=== PATIENT | female | born 2000 | race Caucasian/White ===

== ENCOUNTER → 2020-08-01 | Outpatient (CLI) | payer BC, SELFPAY ==
[2020-08-01 08:32] VITALS: BMI 22.1
[2020-08-05 17:03] LABS: HPV Reflexed? NOT INDICATED
== END | disposition home or self-care (01) ==
LOC: LABSPEC 13:46
PROVIDERS: PCP Pediatrics; Referring Provider Obstetrics & Gynecology; Visit Provider Obstetrics & Gynecology
DX: Z12.4 Encounter for screening for malignant neoplasm of cervix (principal)
CPT/HCPCS: 88175; G0145

== ENCOUNTER 2020-10-10 11:56 | Outpatient (RCR) | payer BC, SELFPAY ==
[2020-08-01 08:32] VITALS: BMI 22.1
== END 2020-12-03 23:59 ==
LOC: IMMUN 11:56
PROVIDERS: Referring Provider Family Medicine; Visit Provider Family Medicine
DX: Z23 Encounter for immunization (principal)
CPT/HCPCS: 0001A; 0002A; 91300

== ENCOUNTER → 2023-04-21 | Outpatient (CLI) | payer BC, SELFPAY ==
[2023-04-25 08:07] LABS: Chlamydia By Nucleic Acid AMP Negative (Negative); Gonococcus By Nucleic Acid AMP Negative (Negative)
== END | disposition home or self-care (01) ==
LOC: LABSPEC 15:03
PROVIDERS: Referring Provider Registered Nurse; Visit Provider Registered Nurse
DX: Z34.90 Encounter for supervision of normal pregnancy, unspecified, unspecified trimester (principal); Z3A.00 Weeks of gestation of pregnancy not specified
CPT/HCPCS: 87086; 87491; 87591

== ENCOUNTER → 2023-05-19 | Outpatient (CLI) | payer BC, SELFPAY ==
[2023-05-19 14:21] LABS: Absolute Lymphocyte Count 1.59 X10^3/uL (0.83-4.51); Absolute Neutrophil Count 7.2 X10^3/uL (2.0-7.7); Basophil# 0.03 X10^3/uL; Basophil% 0.3 % (0-1); Eosinophil# 0.17 X10^3/uL; Eosinophils% 1.8 % (0-5); Hemoglobin 12.1 g/dL (12.0-15.0); Lymphocyte # 1.59 X10^3/ul (0.83-4.51); Lymphocyte % 16.6 % (19-41); Mean Corp Hgb Conc 33.6 g/dL (32-36); Mean Corpuscular Hgb 30.3 pg (27.0-32.0); Mean Corpuscular Volume 90.2 fL (81-99); Mean Platelet Vol. 10.2 fl (6.2-12.0); Monocyte# 0.56 X10^3/uL; Monocyte% 5.9 % (0-10); NRBC Flagged by Analyzer 0 % (0-5); Neutrophil # 7.19 X10^3/uL (2.7-7.7); Neutrophil % 75.1 % (47-70); Platelet Count 220 K/mm3 (150-450); RBC Distribution Width SD 38.9 fl (35.1-43.9); Red Blood Count 3.99 M/mm3 (4.2-5.4); White Blood Count 9.6 K/mm3 (4.4-11.0)
[2023-05-19 14:59] LABS: Anion Gap 4 (5-15); BUN 9 mg/dL (7-18); BUN/Creat Ratio 11.7 RATIO (10-20); Calcium,Total 8.7 mg/dL (8.5-10.1); Chloride 107 mmol/L (98-107); Creatinine, Serum 0.77 mg/dL (0.55-1.02); EST Glomerular Filtration Rate 98 mL/min (>60); Est Glom Filt Rate - Afr Amer 119 mL/min (>60); Glucose 54 mg/dL (74-106); Potassium 3.5 mmol/L (3.5-5.1); Sodium Level 137 mmol/L (136-145)
[2023-05-19 15:39] LABS: HIV - WCH Non-Reactive (Nonreactive); Hepatitis B Surface Antigen Non-Reactive (Nonreactive); Hepatitis C Antibody Non-Reactive (Nonreactive); Rubella IgG Non-Reactive (Nonreactive); Syphilis Antibodies Non-reactive
== END | disposition home or self-care (01) ==
PROVIDERS: Referring Provider Registered Nurse; Visit Provider Registered Nurse
DX: O99.280 Endocrine, nutritional and metabolic diseases complicating pregnancy, unspecified trimester (principal); E16.2 Hypoglycemia, unspecified; Z3A.00 Weeks of gestation of pregnancy not specified
CPT/HCPCS: 36415; 80048; 85025; 86703; 86762; 86780; 86803; 86850; 86900; 86901; 87340

== ENCOUNTER → 2023-06-30 | Outpatient (CLI) | payer BC, SELFPAY ==
--- NOTE | 2023-06-30 07:49 | US_ITS ---
STUDY: SECOND AND THIRD TRIMESTER OBSTETRICAL ULTRASOUND REASON FOR EXAM: Female, 22 years old anatomy LMP: 02/11/2023 TECHNIQUE: Transabdominal and Transvaginal TECHNICAL QUALITY: Adequate. PRIOR ULTRASOUND: None. FINDINGS: There is a single intrauterine fetus. The fetus is in a breech presentation. There is demonstrated cardiac activity with a heart rate of 147 bpm. There is a normal amniotic fluid volume. The largest amniotic fluid pocket measures 4.2 cm. The placenta is posterior and low lying but not previa in location. There are Grade 2 placental changes. The cervix measures 5.3 cm in length. The adnexal regions are not visualized. BIOMETRY: BPD: 4.3: 19 weeks, 0 days HC: 16.6: 19 weeks, 2 days AC: 14.8: 20 weeks, 1 days FL: 3.0: 19 weeks, 2 days CI: FL/BPD: FL/HC: FL/AC: HC/AC: age by current US: 19 weeks, 3 days. LISA by current US: 11/21/2023. Estimated weight: 305 grams, +/- 46 grams, 34 %. age by prior US: weeks, days. LISA by prior US: . Age by LMP: 19 weeks, 6 days. LISA by LMP: 11/18/2023. ANATOMY: Gender: Female Cranium: Normal lateral ventricles. Normal choroid plexus. Normal cerebellum. Normal cisterna magna. Normal face, nose and lips. Chest: Normal 4-chamber heart. Abdomen/Pelvis: Normal diaphragm. Normal stomach. Normal abdominal wall. Normal cord insertion. Normal 3 vessel cord. Normal kidneys. Normal bladder. Spine: Normal cervical spine. Normal thoracic spine. Normal lumbar spine. Normal sacrum. Extremities: Normal bilateral upper extremities. Normal bilateral lower extremities. US/OB Anatomy w/ Transvaginal IMPRESSION: Single live fetus in a breech presentation. No demonstrated anatomic abnormality. Placenta is grade 2 and is not low-lying with no previa. Cervix is closed. age by current US: 19 weeks, 3 days. LISA by current US: 11/21/2023. Estimated weight: 305 grams, +/- 46 grams, 34 %. Electronically Signed: Dario Wilcox MD at 19:56 EST ,
== END | disposition home or self-care (01) ==
PROVIDERS: Referring Provider Registered Nurse; Visit Provider Registered Nurse
DX: Z34.91 Encounter for supervision of normal pregnancy, unspecified, first trimester (principal); Z3A.13 13 weeks gestation of pregnancy
CPT/HCPCS: 76805; 76817

== ENCOUNTER → 2023-08-23 | Outpatient (CLI) | payer BC, SELFPAY ==
--- NOTE | 2023-08-23 07:28 | US_ITS ---
STUDY: SECOND AND THIRD TRIMESTER OBSTETRICAL ULTRASOUND - LIMITED REASON FOR EXAM: Female, 22 years old low lying placenta LMP: February 11, 2023. PRIOR ULTRASOUND: Comparison is made with prior study dated June 30, 2023. TECHNIQUE: Transabdominal and Transvaginal TECHNICAL QUALITY: Adequate. FINDINGS: There is a single intrauterine fetus. The fetus is in a cephalic presentation. There is demonstrated cardiac activity with a heart rate of 150 bpm. There is a normal amniotic fluid volume. The largest amniotic fluid pocket measures 5 cm x 4.9 cm. The amniotic fluid index ([place]) is within normal limits. The placenta is posterior in location and is not low lying. The tip of the placenta lies at 6.1 cm from the cervical os. There are Grade 0 placental changes. The cervix measures 4.3 cm in length. BIOMETRY: BPD: 6.86 cm: 27 weeks, 4 days HC: 25.54 cm: 27 weeks, 5 days AC: 22.78 cm: 27 weeks, 1 days FL: 5.17 cm: 27 weeks, 4 days Age by LMP: 27 weeks, 4 days. LISA by LMP: November 18, 2023. age by prior US: 27 weeks, 1 days. LISA by prior US: November 21, 2023. age by current US: 27 weeks, 4 days. LISA by current US: November 18, 2023. Estimated weight: 1076 grams, +/- 161 grams, 33 percentile. US/OB Limited With Biometrics IMPRESSION: Single live intrauterine gestation with mean gestational age of 27 weeks and 4 days. The tip of the placenta lies at 6.1 cm from the cervical os. Electronically Signed: Arslan Trevino MD at 9:55 EST ,
== END | disposition home or self-care (01) ==
LOC: US 07:25
PROVIDERS: Referring Provider Advanced Practice Midwife; Visit Provider Advanced Practice Midwife
DX: O44.40 Low lying placenta NOS or without hemorrhage, unspecified trimester (principal); Z3A.00 Weeks of gestation of pregnancy not specified
CPT/HCPCS: 76816

== ENCOUNTER → 2023-08-27 | Outpatient (CLI) | payer BC, SELFPAY ==
[2023-08-27 15:18] LABS: Absolute Lymphocyte Count 1.62 X10^3/uL (0.83-4.51); Absolute Neutrophil Count 8.7 X10^3/uL (2.0-7.7); Basophil# 0.02 X10^3/uL; Basophil% 0.2 % (0-1); Eosinophil# 0.24 X10^3/uL; Eosinophils% 2.1 % (0-5); Hematocrit 36.4 % (37-47); Hemoglobin 12.4 g/dL (12.0-15.0); Lymphocyte # 1.62 X10^3/ul (0.83-4.51); Mean Corp Hgb Conc 34.1 g/dL (32-36); Mean Corpuscular Hgb 30.9 pg (27.0-32.0); Mean Corpuscular Volume 90.8 fL (81-99); Mean Platelet Vol. 10.6 fl (6.2-12.0); Monocyte# 0.93 X10^3/uL; NRBC Flagged by Analyzer 0 % (0-5); Neutrophil # 8.74 X10^3/uL (2.7-7.7); Neutrophil % 75.2 % (47-70); Platelet Count 245 K/mm3 (150-450); RBC Distribution Width CV 12.2 % (11.6-14.6); RBC Distribution Width SD 40.4 fl (35.1-43.9); Red Blood Count 4.01 M/mm3 (4.2-5.4); White Blood Count 11.6 K/mm3 (4.4-11.0)
[2023-08-27 16:16] LABS: Glucose Challenge Gest 1H 50g 73 mg/dL (70-140)
[2023-08-27 16:31] LABS: HIV - WCH Non-Reactive (Nonreactive); Syphilis Antibodies Non-reactive
== END | disposition home or self-care (01) ==
LOC: LAB 14:42
PROVIDERS: Referring Provider Advanced Practice Midwife; Visit Provider Advanced Practice Midwife
DX: O44.40 Low lying placenta NOS or without hemorrhage, unspecified trimester (principal); Z3A.00 Weeks of gestation of pregnancy not specified; Z13.1 Encounter for screening for diabetes mellitus
CPT/HCPCS: 36415; 82950; 85025; 86703; 86780

== ENCOUNTER → 2023-10-21 | Outpatient (CLI) | payer BC, SELFPAY | END | disposition home or self-care (01) | PROVIDERS: Visit Provider Advanced Practice Midwife | DX: Z34.00 Encounter for supervision of normal first pregnancy, unspecified trimester (principal); Z3A.00 Weeks of gestation of pregnancy not specified | CPT/HCPCS: 87081 ==

== ENCOUNTER 2023-11-11 10:45 | Inpatient (IN) | payer BC, SELFPAY ==
[2023-11-11] VITALS (39 sets, daily range): BP systolic 95–119; BP diastolic 54–75; PULSE 69–89; RESP 14–18; TEMP 35.9–37.2; O2SAT 93–100; BMI 26.8
[2023-11-11] MEDS: Lactated Ringers 1,000 ML 50 ML IV (11:15)
[2023-11-11 11:33] LABS: Absolute Lymphocyte Count 1.61 X10^3/uL (0.83-4.51); Absolute Neutrophil Count 7.1 X10^3/uL (2.0-7.7); Basophil# 0.02 X10^3/uL; Basophil% 0.2 % (0-1); Eosinophil# 0.12 X10^3/uL; Eosinophils% 1.3 % (0-5); Hematocrit 35.1 % (37-47); Hemoglobin 11.8 g/dL (12.0-15.0); Lymphocyte # 1.61 X10^3/ul (0.83-4.51); Lymphocyte % 16.8 % (19-41); Mean Corp Hgb Conc 33.6 g/dL (32-36); Mean Corpuscular Hgb 29.4 pg (27.0-32.0); Mean Corpuscular Volume 87.3 fL (81-99); Mean Platelet Vol. 11.2 fl (6.2-12.0); Monocyte# 0.69 X10^3/uL; Monocyte% 7.2 % (0-10); NRBC Flagged by Analyzer 0 % (0-5); Neutrophil # 7.11 X10^3/uL (2.7-7.7); Platelet Count 235 K/mm3 (150-450); RBC Distribution Width SD 38.5 fl (35.1-43.9); Red Blood Count 4.02 M/mm3 (4.2-5.4); White Blood Count 9.6 K/mm3 (4.4-11.0)
[2023-11-11] MEDS: Oxytocin 15 Units/NS 250ml 15 UNITS/250 ML IV.SOLN 2 UNITS IV (11:47)
[2023-11-11] MEDS: 0.9% Normal Saline Single 100 ML IV.SOLN. INTRA-UTER (12:54)
[2023-11-11 18:25] LABS: Syphilis Antibodies Non-reactive
[2023-11-11] MEDS: fentaNYL-bupivacaine (epidural) 100 ML BAG EPIDURAL (18:44)
[2023-11-11] MEDS: Lactated Ringers 1,000 ML 999 ML IV (19:22)
[2023-11-11] MEDS: LACTATED RINGERS 500 ML 999 ML IV (20:40)
--- NOTE | 2023-11-11 20:46 | HP.PCM_ITS ---
History and Physical [facility] [address] [place] [address] OFFICE VISIT Date of Service: 11/11/23 Intake Vital Signs 07/30/2408:18 10/28/2410:00 11/10/2408:41 11/10/2408:43 Height 5 ft 6 in 5 ft 6 in 5 ft 6 in 5 ft 6 in Weight: 171 lb BMI 27.6 BP 117/68 Intake Visit Reasons: 39 WK OB [place] Required: No Is patient in pain?: No Allergies penicillin G Allergy (Mild, Verified 11/11/23 09:42) Unknown Medications ?Medication ?Instructions ?Recorded ?Confirmed ?Type vit,calcium no.40-iron tab PO 04/21/23 11/11/23 History fum 27 mg iron-folate no.1 1 mg tablet (PNV-Select) blood sugar diagnostic (Blood #120 ea 05/27/23 11/11/23 Rx Glucose Test strips) blood-glucose meter #1 ea 05/27/23 11/11/23 Rx lancets #100 ea 05/27/23 11/11/23 Rx ondansetron 4 mg disintegrating 4 mg PO Q6H PRN nausea and 07/30/23 11/11/23 Rx tablet vomiting #90 tabs Last Menstrual Period: 02/11/23 Zika: Zika virus screening: Negative : No PFSH PFSH Surgical History History of oral surgery Family History Father Low blood sugarAunt DiabetesGrandmother DiabetesBrother Seizures epilepsy Social History adopted: No household members: spouse housing: house current occupational status: employed current occupation: [employer] current occupational exposures/hazards: No pets and animals: Yes pets and animals: dog(s) history of recent travel: Yes out of state: Yes out of country: No sexually active: Yes Smoking Status: Never smoker alcohol intake: current alcohol intake frequency: a few times a week details: socially - not while substance use type: does not use caffeine: Yes what type of physical activity do you participate in: walking riley/christian: Uatsdin seatbelt use: always do you feel safe at home: Yes 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 she denies any vb lof admits good fm. upon evaluation she was found to have low fluid with an [place] of 5 cm. OB Visit LISA Calculator Estimated Delivery Date Method Current WG Current Estimate 11/18/23 LMP (Certain) 39w 0d Expected Delivery Route/Plan Labor Preferences- CB/BF classes: enc labor support person: Adán labor intervention preferences: [] pain management options preferred: epidural cut cord/dad catch: [] : [] PP control planned: [] discussed possible routes of delivery and associated risks: [] special requests: [] Specific Issue/Plans Covid status: declined Flu vaccine: declined Tdap vaccine: declined Rhogam: na LARC form signed: declined / movement and labor precautions reviewed. Problem list reviewed and updated with the most current plan of care details and appropriate orders placed. Relevant counseling for the gestational age provided. Continue routine care and follow up unless otherwise noted in visit notes/problem list details Initial Weight: 144 lb Date -?-?-?-?-?-?-?-?-?-?-?-?- EGA Weight BP Urine Prot -?-?-?-?-?-?-?-?-?-?-?-?- Glucose FHR FuHt Pres Dilation -?-?-?-?-?--?-?-?-?-?-?-?- Effaced St Visit Note 04/21/23-?-?-?-?-?-?-?-?-?-?-?-?- 9w 6d 144 lb 2 oz(+2 oz) 105/72 -?-?-?-?-?-?-?-?-?-?-?-?- 180 -?-?-?-?-?-?-?-?-?-?-?-?- LC- LMP con with CRL. LISA 11/18/23. discussed and declines nipt. LC- LMP con with CRL. LISA 11/18/23. discussed and declines nipt/carrier screening. 05/19/23-?-?-?-?-?-?-?-?-?-?-?-?- 13w 6d 144 lb 2 oz(+2 oz) 106/60 -?-?-?-?-?-?-?-?-?-?-?-?- 150 -?-?-?-?-?-?-?-?-?-?-?-?- SM- n ovb cramping 06/30/23-?-?-?-?-?-?-?-?-?-?-?-?- 19w 6d 150 lb(+6 lb) 97/60 Negative -?-?-?-?-?-?-?-?-?-?-?-?- Negative 150 -?-?-?-?-?-?-?-?-?-?-?-?- LC- no vb/cramping. had anatomy today. report pending. no concerns 07/30/23-?-?-?-?-?-?-?-?-?-?-?-?- 24w 1d 153 lb 6 oz(+9 lb 6 oz) 106/67 Negative -?-?-?-?-?-?-?-?-?-?-?-?- Negative 140 24 -?-?-?-?-?-?-?-?-?-?-?-?- Kw- no vb/cramping. good fm. US ordered for 28 weeks. 08/27/23-?-?-?-?-?-?-?-?-?-?-?-?- 28w 1d 158 lb 8 oz(+14 lb 8 oz) 114/70 Negative -?-?-?-?-?-?-?-?-?-?-?-?- Negative 135 28 -?-?-?-?-?-?-?-?-?-?-?-?- KW- no vb/lof/ctx. good fm. labs today. KW- no vb/lof/ctx. good fm. labs today. LARC done 09/10/23-?-?-?-?-?-?-?-?-?-?-?-?- 30w 1d 164 lb 2 oz(+20 lb 2 oz) 99/60 Negative -?-?-?-?-?-?-?-?-?-?-?-?- Negative 140 30 -?-?-?-?-?-?-?-?-?-?-?-?- SM- no vb lof good no regular ctx 10/08/23-?-?-?-?-?-?-?-?-?-?-?-?- 34w 1d 166 lb 4 oz(+22 lb 4 oz) 104/69 Negative -?-?-?-?-?-?-?-?-?-?-?-?- Negative 161 33 -?-?-?-?-?-?-?-?-?-?-?-?- JV- no lof, vaginal bleeding, or dec fm. still having some moring sickness. nighttime snacks discussed. lorenzo not very helpful 10/21/23-?-?-?-?-?-?-?-?-?-?-?-?- 36w 0d 169 lb(+25 lb) 104/69 Negative -?-?-?-?-?-?-?-?-?-?-?-?- Negative 150 35 -?-?-?-?-?-?-?-?-?-?-?-?- kw- no vb/lof/ctx. good fm. GBS today. 10/29/23-?-?-?-?-?-?-?-?-?-?-?-?- 37w 1d 169 lb(+25 lb) 106/64 Negative -?-?-?-?--?-?-?-?-?-?-?-?- Negative 150 36 -?-?-?-?-?-?-?-?-?-?-?-?- SM- no vb lof good fm no regular ctx 11/11/23-?-?-?-?-?-?-?-?-?-?-?-?- 39w 0d 171 lb(+27 lb) 117/68 -?-?-?-?-?-?-?-?-?-?-?-?- 140 37 Cephalic 2-?-?-?-?-?-?-?-?-?- ?-?-?- 60 -2 SM- no vb lof good fm no regular ctx bedside georgia barely 5 recommend IOL now. ACOG First Trimester First Trimester: Desire for , Alcohol, Tobacco Cessation, Illicit/Recreational Drug/Substance Use, Intimate Partner Violence, Barriers to care, Unstable Housing, Communication Barriers, Environmental/Work Hazards, Anticipated Course of Care, Toxoplasmosis Precations, Use of Any medications, Sexual activity, Exercise, Dental Care, Sauna/Hot tub use, Seat Belt use, Childbirth classes/Hospital facilities, , Travel, Indications for Ultrasound and Screening for Aneuploidy Second Trimester Second Trimester: Signs and Symptoms of Labor, Selecting a care provider, Reproductive Life Planning & Contreception, Care Planning, Tobacco Cessation, Depression/Anxiety and Intimate Partner Violence Third Trimester Third Trimester: Pain Management Plans, Labor support person(s), Immediate Larc, Movement Monitoring and Infant Feeding Yes ; Discussed Trial of Labor after Counseling and Discussed Circumcision preference ROS Const Reports system reviewed and no additional complaints, except as documented Card Reports system reviewed and no additional complaints, except as documented Resp Reports system reviewed and no additional complaints, except as documented GI Reports system reviewed and no additional complaints, except as documented and Reports nausea Reports system reviewed and no additional complaints, except as documented Musc Reports system reviewed and no additional complaints, except as documented Exam Const General: cooperative, healthy appearing, comfortable and anxious HENIL Head: normal to inspection Nose: external nose normal Face and sinus: normal facial exam Neck Neck: normal visual inspection, full ROM and no lymphadenopathy Thyroid: thyroid normal Chest Chest palpation & inspection: normal inspection of the chest Resp Effort & Inspection: normal respiratory effort GI Inspection: normal to inspection Palpation: soft and other (gravid uterus) Other: vertex and appropriate size for gestational age Other: Cervical Exam: Extrem General: pedal edema Coding Level of Care Code OB Routine Diagnoses Supervision of normal first Z34.00 36 weeks gestation of Z3A.36 Weeks of gestation: 39 weeks Low blood sugar E16.2 Oligohydramnios in third trimester O41.03X0 Assessment and Plan Assessment and Plan (1) Supervision of normal first : Status: Acute Comment: PRR LISA 11/18/2023. girl Gayle : Adán (2) : Status: Acute Qualifiers: Weeks of gestation: 39 weeks Qualified Code(s): Z3A.36 - 36 weeks gestation of Comment: gbs neg, declines nipt carrier and afp screen. nl anatomy. (3) Low blood sugar: Status: Acute Comment: had syncope in the past BMP ordered. no official diagnosis. small frequent meals, increase protein. (4) Oligohydramnios in third trimester: Status: Acute Patient presents IOL, plan management for with fb pit. Pain management: plans epidural. GBS negative. Management of any complications: oligo I have reviewed the [facility] and made any clinically relevant updates. Assessment & Plan Assessment/Plan (1) Low blood sugar: (2) : QUALIFIERS: Weeks of gestation: 39 weeks Qualified Code(s): Z3A.39 - 39 weeks gestation of (3) Supervision of normal first : (4) Oligohydramnios in third trimester:
--- NOTE | 2023-11-11 20:48 | PCM.PN.BLA ---
Progress Note arom clear fluid, epidural in now, making progress 6 cm.
[2023-11-11] MEDS: Lactated Ringers 1,000 ML 200 ML IV (22:57)
[2023-11-12] VITALS (23 sets, daily range): BP systolic 86–116; BP diastolic 50–73; PULSE 65–96; RESP 16–18; TEMP 36.1–37.2; O2SAT 97–100
[2023-11-12] MEDS: fentaNYL-bupivacaine (epidural) 100 ML BAG EPIDURAL (00:21)
[2023-11-12] MEDS: LACTATED RINGERS 500 ML 999 ML IV (01:32)
[2023-11-12] MEDS: Oxytocin 15 Units/NS 250ml 15 UNITS/250 ML IV.SOLN 83 UNITS IV (02:21)
--- NOTE | 2023-11-12 02:37 | EX.PCM.OBRPT ---
Assessment & Plan (1) Oligohydramnios in third trimester: (2) Supervision of normal first : COMMENT: PRR LISA 11/18/2023. girl Gayle : Adán (3) : QUALIFIERS: Weeks of gestation: 39 weeks Qualified Code(s): Z3A.39 - 39 weeks gestation of COMMENT: gbs neg, declines nipt carrier and afp screen. nl anatomy. (4) Low blood sugar: COMMENT: had syncope in the past BMP ordered. no official diagnosis. small frequent meals, increase protein. (5) Vaginal delivery: COMMENT: SM IOL [place] girl Gayle 39 Maternal Data Information LISA Calculator Estimated Delivery Date Method Current WG Current Estimate 11/18/23 LMP (Certain) 39w 1d Vaginal Delivery Operative Information Pre-Operative Diagnosis: see a/p diagnoses Post-Operative Diagnosis: same Surgery / Procedure Performed: Spontaneous Vaginal Delivery Type of Anesthesia: Epidural Special Medications: none Estimated Blood Loss: 300 Fluids Replaced: crystalloid Findings Description of Procedure: Patient began pushing and delivered the head in the ASHU presentation. The head was delivered atraumatically and a loose nuchal cord ?1 was identified and the infant delivered through without complication. The anterior and posterior shoulders delivered without complication followed by the rest of the and the was placed on the maternal abdomen. Delayed cord clamping was employed for approximately 60 seconds. Cord was clamped and cut and gentle traction was applied to the cord and the placenta delivered spontaneously immediately following it was noted to be intact with three-vessel cord. The perineum and vagina were inspected and noted to have a second degree perineal laceration which was repaired in the usual fashion with 3-0 vicryl rapide. . EBL was 300. Patient and tolerated delivery well. Amniotic Fluid Description: Clear Placental Delivery Description: Spontaneous Placenta Disposition: [facility] Cord Vessel Description: 3 Vessels Cord Entanglement: None Delayed Cord Clamping: Yes Post Vaginal Delivery Medications Given After Delivery: IV Pitocin Episiotomy Description: None Complication Complications: None Procedures Urinary/Genital [id number]: [id number] Vaginal Delivery global pkg
--- NOTE | 2023-11-12 02:39 | DCINST_ITS ---
Discharge Instructions Diet Discharge Diet: No restrictions Activity Discharge Activity: Return to Normal Activity, May Not Drive (while taking narcotic pain medications.) and May Shower May resume sexual activity in: 4-6 weeks Dressing / Incision Call your doctor if your incision/area has: Continuous Slow Oozing, Sudden Increased Bleeding, Increased Pain/ Swelling, Increased Redness and Foul Smelling Discharge Follow Up Care Please Follow Up With: Ewelina Boone MD When: Call [phone] to make an appointment with your doctor in 6 weeks. If you had elevated blood pressure or 4th degree laceration, you will need to be seen in 2 weeks. Test Results: Test results from this visit will be discussed in further detail at your follow- up appointment, if applicable. Discharge Plan Admission Admit Date/Time: 11/11/23 10:45 Attending Provider: Ewelina Boone Primary Care Provider: Care Physician,Eveline Primary Discharge Orders/Prescriptions Prescriptions: No Action PNV-Select 27-1 mg tablet 1 tab PO DAILY ondansetron 4 mg tablet,disintegrating 4 mg PO Q6H PRN (Reason: nausea and vomiting) Qty: 90 0RF Referrals / Follow Up: Care Physician,No Primary [Primary Care Provider] - Disposition Disposition (needs filled in before D/C Order can be placed): Home, Self Care
[2023-11-12] MEDS: Methylergonovine 0.2 MG/ML Ampul IM (04:24)
[2023-11-12 05:51] LABS: Bedside Glucose 76 mg/dL (74-106)
[2023-11-12] MEDS: Ondansetron 4 MG/2 ML Vial IV (08:17)
[2023-11-12] MEDS: 0.9% Saline Lock 10 ML Syringe IV (08:18)
[2023-11-12] MEDS: Naproxen 500 MG Tablet PO (16:18)
[2023-11-12] MEDS: Senna/Docusate Sodium 1 Tablet PO (16:18)
[2023-11-13 08:00] VITALS: BP 99/63; PULSE 74; RESP 16; TEMP 36.4
--- NOTE | 2023-11-13 10:46 | PCM.PN.OB ---
Subjective Subjective Patient doing well without complaints. Tolerating PO. Ambulating and voiding without difficulty. Feeding well. Denies chest pain, shortness of breath, calf pain/swelling, fevers, chills, lightheadedness. Objective Data Objective Data Vital Signs: Vital Signs Temp Pulse Resp BP Pulse Ox O2 Del Method 97.5 F L 74 16 99/63 98 Room Air 11/13/23 08:00 11/13/23 08:00 11/13/23 08:00 11/13/23 08:00 11/12/23 16:07 11/12/23 19:56 Oxygen Delivery Method Room Air Weight: 171 lb 6 oz Body Mass Index (BMI) 26.8 Intake & Output: Intake and Output for Last 24 Hours 11/11/23 11/12/23 11/13/23 23:59 23:59 23:59 Intake Total 2377.81 / 2377.81 1261.81 / 1261.81 Output Total 350 / 350 1602 / 1602 Balance 2027.81 / 202.81 -340.19 / -340.19 Lab / Micro Data 11/11/23 11:20 Physical Exam Const alert and oriented x3 HEENT normocephalic Neck full ROM Lymph Lymphatic: no lymphadenopathy noted Chest inspection of chest normal Resp normal respiratory effort, normal air movement and no retractions Cardio regular rate and regular rhythm GI normal to inspection, nondistended, normoactive bowel sounds Uterus Palpation: uterus fundus firm Extremity normal to inspection, full ROM and no calf tenderness Skin no rashes or lesions noted Psych mental status grossly normal Assessment & Plan (1) Vaginal delivery: COMMENT: SM IOL [place] girl Gayle 39 PLAN: s/p PPD # 1 1. routine post delivery care 2. breast feeding- support given 3. rh positive 4. rubella immune 5. plan d/c home
[2023-11-13] MEDS: Benzocaine/Lanolin/Aloe Vera 1 SPRAY EACH TOPICAL (10:59)
[2023-11-13] MEDS: Naproxen 500 MG Tablet PO (11:30)
[2023-11-13] MEDS: Senna/Docusate Sodium 1 Tablet PO (11:31)
== END 2023-11-13 12:30 | disposition home or self-care (01) | DRG 807 ==
PROVIDERS: Admitting Provider Obstetrics & Gynecology; Visit Provider Obstetrics & Gynecology
DX: O41.03X0 Oligohydramnios, third trimester, not applicable or unspecified (principal); Z37.0 Single live birth; O69.81X0 Labor and delivery complicated by cord around neck, without compression, not applicable or unspecified; O70.1 Second degree perineal laceration during delivery; Z3A.39 39 weeks gestation of pregnancy
CPT/HCPCS: 59025; 59050; 82962; 85025; 86780; 86850; 86900; 86901; 99221; J7120; A4216; G0378; J2405

== ENCOUNTER → 2023-12-24 | Outpatient (CLI) | payer BC, SELFPAY ==
[2023-12-28 20:22] LABS: HPV Reflexed? NOT INDICATED
== END | disposition home or self-care (01) ==
PROVIDERS: Referring Provider Obstetrics & Gynecology; Visit Provider Obstetrics & Gynecology
DX: Z12.4 Encounter for screening for malignant neoplasm of cervix (principal)
CPT/HCPCS: 88175; G0145

== ENCOUNTER → 2024-08-03 | Outpatient (CLI) | payer OTHER, BC, SELFPAY ==
[2024-08-08 02:06] LABS: Chlamydia By Nucleic Acid AMP Negative (Negative); Gonococcus By Nucleic Acid AMP Negative (Negative)
== END | disposition home or self-care (01) ==
LOC: LABSPEC 17:08
PROVIDERS: Referring Provider Advanced Practice Midwife; Visit Provider Advanced Practice Midwife
DX: Z34.90 Encounter for supervision of normal pregnancy, unspecified, unspecified trimester (principal); Z3A.00 Weeks of gestation of pregnancy not specified
CPT/HCPCS: 87086; 87088; 87491; 87591

== ENCOUNTER → 2024-09-28 | Outpatient (CLI) | payer OTHER, BC, SELFPAY ==
[2024-09-28 13:55] LABS: Absolute Lymphocyte Count 1.38 X10^3/uL (0.83-4.51); Absolute Neutrophil Count 6.2 X10^3/uL (2.0-7.7); Basophil# 0.02 X10^3/uL; Basophil% 0.2 % (0-1); Eosinophil# 0.14 X10^3/uL; Eosinophils% 1.7 % (0-5); Hematocrit 34.5 % (37-47); Hemoglobin 11.8 g/dL (12.0-15.0); Lymphocyte # 1.38 X10^3/ul (0.83-4.51); Lymphocyte % 16.9 % (19-41); Mean Corp Hgb Conc 34.2 g/dL (32-36); Mean Corpuscular Hgb 28.9 pg (27.0-32.0); Mean Corpuscular Volume 84.6 fL (81-99); Mean Platelet Vol. 10.9 fl (6.2-12.0); Monocyte# 0.43 X10^3/uL; Monocyte% 5.3 % (0-10); NRBC Flagged by Analyzer 0 % (0-5); Neutrophil # 6.18 X10^3/uL (2.7-7.7); Neutrophil % 75.5 % (47-70); Platelet Count 216 K/mm3 (150-450); RBC Distribution Width CV 13.6 % (11.6-14.6); RBC Distribution Width SD 42.3 fl (35.1-43.9); Red Blood Count 4.08 M/mm3 (4.2-5.4); White Blood Count 8.2 K/mm3 (4.4-11.0)
[2024-09-28 15:21] LABS: HIV Nonreactive (Nonreactive); Hepatitis B Surface Antigen Nonreactive (Nonreactive); Hepatitis C Antibody Nonreactive (Nonreactive); Rubella IgG Nonreactive (Nonreactive); Syphilis Antibodies Nonreactive (Nonreactive)
== END | disposition home or self-care (01) ==
LOC: LAB 13:21
PROVIDERS: PCP Family Medicine; Referring Provider Advanced Practice Midwife; Visit Provider Advanced Practice Midwife
DX: Z34.90 Encounter for supervision of normal pregnancy, unspecified, unspecified trimester (principal)
CPT/HCPCS: 85025; 86703; 86762; 86780; 86803; 86850; 86900; 86901; 87340

== ENCOUNTER → 2024-12-22 | Outpatient (CLI) | payer OTHER, SELFPAY ==
[2024-12-22 12:17] LABS: Absolute Lymphocyte Count 1.65 X10^3/uL (0.83-4.51); Absolute Neutrophil Count 5.8 X10^3/uL (2.0-7.7); Basophil# 0.02 X10^3/uL; Basophil% 0.2 % (0-1); Eosinophils% 2.4 % (0-5); Hematocrit 34.6 % (37-47); Hemoglobin 11.6 g/dL (12.0-15.0); Lymphocyte # 1.65 X10^3/ul (0.83-4.51); Lymphocyte % 19.5 % (19-41); Mean Corp Hgb Conc 33.5 g/dL (32-36); Mean Corpuscular Hgb 28.6 pg (27.0-32.0); Mean Corpuscular Volume 85.2 fL (81-99); Mean Platelet Vol. 10.9 fl (6.2-12.0); Monocyte# 0.73 X10^3/uL; Monocyte% 8.6 % (0-10); NRBC Flagged by Analyzer 0 % (0-5); Neutrophil # 5.82 X10^3/uL (2.7-7.7); Neutrophil % 69.1 % (47-70); Platelet Count 242 K/mm3 (150-450); RBC Distribution Width CV 12.9 % (11.6-14.6); RBC Distribution Width SD 39.8 fl (35.1-43.9); Red Blood Count 4.06 M/mm3 (4.2-5.4); White Blood Count 8.4 K/mm3 (4.4-11.0)
[2024-12-22 13:06] LABS: Glucose Challenge Gest 1H 50g 86 mg/dL (70-140); HIV Nonreactive (Nonreactive); Syphilis Antibodies Nonreactive (Nonreactive)
== END | disposition home or self-care (01) ==
PROVIDERS: PCP Family Medicine; Referring Provider Obstetrics & Gynecology; Visit Provider Obstetrics & Gynecology
DX: Z34.82 Encounter for supervision of other normal pregnancy, second trimester (principal); Z13.1 Encounter for screening for diabetes mellitus
CPT/HCPCS: 36415; 82950; 85025; 86703; 86780

== ENCOUNTER → 2025-02-02 | Outpatient (CLI) | payer OTHER, SELFPAY ==
--- NOTE | 2025-02-02 11:52 | US_ITS ---
PROCEDURE: OB LIMITED WITH BIOMETRICS 02/02/2025 REASON FOR EXAM: 36WK GROWTH US TECHNIQUE: OB LIMITED WITH BIOMETRICS COMPARISON: None FINDINGS LMP: June 01, 2025. Number: 1 Position: Vertex Placental Position: Posterior and not low-lying. Placental Abnormalities: No evidence of previa. DIMENSIONS: Biparietal Diameter: 8.4 cm: 33 weeks and 5 days: 16 percentile/ Head Circumference: 30.7 cm: 34 weeks and 2 days: 6 percentile/ Abdominal Circumference: 29.8 cm: 33 weeks and 6 days: 20 percentile/ Femur Length: 6.4 cm: 33 weeks and 1 day: 6 percentile/ ESTIMATED WEIGHT: 2257 g plus/-339 g ESTIMATED WEIGHT PERCENTILE (24+ weeks): 14 ESTIMATED GESTATIONAL AGE: Baseline: 35 weeks and 1 day By Ultrasound: 34 weeks ESTIMATED DATE OF DELIVERY: Baseline: March 08, 2025 By Ultrasound: March 16, 2025 BIOPHYSICAL ASSESSMENT: Amniotic Fluid Volume: 3.5 cm Amniotic Fluid Index: 12 cm (8-24 cm normal range) Cardiac Motion: 136 beats per minute (average) Trunk and Limb Motion: Present. MATERNAL ANATOMY: Adnexa: Neither maternal ovary is successfully identified. US/OB Limited With Biometrics IMPRESSION: Single live intrauterine gestation with a mean gestational age of 34 weeks. Reading Location: [id number]
== END | disposition home or self-care (01) ==
LOC: US 11:50
PROVIDERS: PCP Family Medicine; Referring Provider Nurse Practitioner Women's Health; Visit Provider Nurse Practitioner Women's Health
DX: Z87.59 Personal history of other complications of pregnancy, childbirth and the puerperium (principal)
CPT/HCPCS: 76816

== ENCOUNTER → 2025-02-16 | Outpatient (CLI) | payer OTHER, SELFPAY | END | disposition home or self-care (01) | LOC: LABSPEC 15:56 | PROVIDERS: PCP Family Medicine; Visit Provider Advanced Practice Midwife | DX: Z34.83 Encounter for supervision of other normal pregnancy, third trimester (principal); Z3A.37 37 weeks gestation of pregnancy | CPT/HCPCS: 87081 ==

== ENCOUNTER 2025-02-22 09:12 | Inpatient (IN) | payer OTHER, SELFPAY ==
[2025-02-22] VITALS (54 sets, daily range): BP systolic 77–153; BP diastolic 47–70; PULSE 59–194; RESP 14–18; TEMP 36–36.8; O2SAT 88–100; BMI 26.4
[2025-02-22 10:45] LABS: Hematocrit 33.9 % (37-47); Hemoglobin 11.3 g/dL (12.0-15.0); Immature Granulocytes Count 0.040 X10^3/uL (0.0-0.0); Mean Corp Hgb Conc 33.3 g/dL (32-36); Mean Corpuscular Volume 83.3 fL (81-99); Mean Platelet Vol. 11.3 fl (6.2-12.0); NRBC Flagged by Analyzer 0 % (0-5); Platelet Count 226 K/mm3 (150-450); RBC Distribution Width CV 13.7 % (11.6-14.6); RBC Distribution Width SD 41.4 fl (35.1-43.9); Red Blood Count 4.07 M/mm3 (4.2-5.4); White Blood Count 8.7 K/mm3 (4.4-11.0)
[2025-02-22] MEDS: Lactated Ringers 1,000 ML 999 ML IV ×2 (11:33→14:55)
[2025-02-22] MEDS: 0.9% Saline Lock 10 ML Syringe IV (11:33)
[2025-02-22 11:49] LABS: Syphilis Antibodies Nonreactive (Nonreactive)
[2025-02-22] MEDS: Oxytocin 15 Units/NS 250ml 15 UNITS/250 ML IV.SOLN 2 UNITS IV (12:36)
[2025-02-22] MEDS: Lactated Ringers 1,000 ML 50 ML IV (12:38)
--- NOTE | 2025-02-22 12:44 | HP.PCM_ITS ---
History and Physical Vital Signs 01/23/2508:29 02/16/2514:16 02/23/2508:27 Height 5 ft 7 in 5 ft 7 in 5 ft 7 in Weight: 169 lb BMI 26.4 BP 120/75 Intake Visit Reasons: 38wk ob [place] Guide Required: No Is patient in pain?: No (root canal yesterday - taking Tylenol every 6 hours for pain) Allergies penicillin G Allergy (Mild, Verified 02/22/25 08:24) Unknown Medications ?Medication ?Instructions ?Recorded ?Confirmed ?Type multivitamin no.47-iron fum 27 cap PO 07/18/24 02/22/25 History mg-folate no.1 1 mg-dha 300 mg capsule (PNV-DHA) ondansetron 4 mg disintegrating 4 mg PO Q6H PRN nausea and 11/27/2401/27 Rx tablet vomiting #90 tabs Last Menstrual Period: 06/01/24 Zika: Zika virus screening: Negative : No PFSH PFSH Medical History Oligohydramnios Surgical History History of appendectomy History of oral surgery Family History Father Low blood sugarAunt Diabetes MaternalGrandmother Diabetes MaternalBrother Seizures epilepsy Social History adopted: No household members: spouse and children housing: house number of children: 1 current occupational status: employed current occupation: [employer] current occupational exposures/hazards: No pets and animals: Yes pets and animals: dog(s) history of recent travel: Yes ([place] June, [place] April) out of state: Yes out of country: No sexually active: Yes Smoking Status: Never smoker alcohol intake: current alcohol intake frequency: a few times a week details: socially - not while substance use type: does not use well-balanced diet: daily or most days caffeine: No eating out: 1-3 times/week during the past year weight has: other details: had baby Gayle October 2023 what type of physical activity do you participate in: walking and other details: you tube videos frequency: 3-4 times per week duration: 15-30 minutes/day riley/rastafari: Zoroastrian seatbelt use: always do you feel safe at home: Yes 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 Date Name GA/Weeks Outcome Route Bth Weight Infant Gen Labor Lgth Anesthesia Del Locatn Provider FOB 11/12/23 Gayle 39 live - full term 7#8oz Fem traci epidural [facility] SM Adán Delivery Date: 11/12/23 Last Updated by: Ewelina Boone MD see problem list for complications, and iol oligo sm girl Gayle 39 HPI 38wk ob Details: MICHEL ARMENTA is a 24 year old who presents for routine OB visit. Upon evaluation her fundal height was found to be low and bedside ultrasound revealed [place] of 1 cm. Plan is to proceed with an induction of labor with Pitocin OB Visit LISA Calculator Estimated Delivery Date Method Current WG Current Estimate 03/08/25 LMP (Certain) 38w 0d Other Estimates 03/08/25 Ultrasound #1 38w 0d Expected Delivery Route/Plan Labor Preferences- CB/BF classes: completed labor support person: Adán labor intervention preferences: [] pain management options preferred: wants tub. Will do epidural if she requests cut cord/dad catch: yes : yes PP control planned: discussed discussed possible routes of delivery and associated risks: [] special requests: [] Specific Issue/Plans Covid status: [] Flu vaccine: [] Tdap vaccine: declines Rhogam: na LARC form signed: yes Problem list reviewed and updated with the most current plan of care details and appropriate orders placed. Relevant counseling for the gestational age provided. Continue routine care and follow up unless otherwise noted in visit notes/problem list details Initial Weight: 147 lb Date -?-?-?-?-?-?-?-?-?-?-?-?- EGA Weight BP Urine Prot -?-?-?-?-?-?-?-?-?-?-?-?- Glucose FHR FuHt Pres Dilation -?-?-?-?-?-?-?-?-?-?-?-?- Effaced St Visit Note 08/03/24-?-?-?-?-?-?-?-?-?-?-?-?- 9w 0d 147 lb 8 oz(+8 oz) 109/70 -?-?-?-?-?-?-?-?-?-?-?-?- 179 -?-?-?-?-?-?-?-?-?-?--?-?- KW-CRL cons with dates. declines NIPT. 09/05/24-?-?-?-?-?-?-?-?-?-?-?-?- 13w 5d 139 lb 6 oz(-7 lb 10 oz) 112/79 Negative -?-?-?-?-?-?-?-?-?-?-?-?- Negative 150 -?-?-?-?-?-?-?-?-?-?-?-?- SM- no vb lof co nausea and vomiting 10/03/24-?-?-?-?-?-?-?-?-?-?-?-?- 17w 5d 148 lb(+16 oz) 104/62 Negative -?-?-?-?-?-?-?-?-?-?-?-?- Negative 160 -?-?-?-?-?-?-?-?-?-?-?-?- MH-No VB. Questions if feeling flutters. Denies concerns 11/10/24-?-?-?-?-?-?-?-?-?-?-?-?- 23w 1d 151 lb(+4 lb) 103/67 Negative -?-?-?-?-?-?--?-?-?-?-?-?- Negative 150 -?-?-?-?-?-?-?-?-?-?-?-?- Sm- no vb lof good fm no regular ctx 11/27/24-?-?-?-?-?-?-?-?-?-?-?-?- 25w 4d 157 lb(+10 lb) 118/73 Negative -?-?-?-?-?-?-?-?-?-?-?-?- Negative 155 25 -?-?-?-?-?-?-?-?-?-?-?-?- KW-no vb/lof/ctx. good fm. glucose next visit. still having nausea-using zofran. 12/22/24-?-?-?-?-?-?-?-?-?-?-?-?- 29w 1d 158 lb 4 oz(+11 lb 4 oz) 107/65 Negative -?-?-?-?-?-?-?-?-?-?-?-?- Negative 145 28 -?-?-?-?-?-?-?-?-?-?-?-?- JV- no lof, vaginal bleeding, or dec fm. no cramping. glucola today. declines NIPT. 01/22/25-?-?-?-?-?-?-?-?-?-?-?-?- 33w 4d 166 lb(+19 lb) 108/70 Negative -?-?-?-?-?-?-?-?-?-?-?-?- Negative 151 31 -?-?-?-?-?-?-?-?-?-?-?-?- mh-No VB, LOF. Good FM. Growth US orderd. Larc 02/07/25-?-?-?-?-?-?-?-?-?-?-?-?- 35w 6d 166 lb 8 oz(+19 lb 8 oz) 106/69 Negative -?-?-?-?-?-?-?-?-?-?-?-?- Negative 142 32 -?-?-?-?-?-?-?-?-?-?-?-?- MH-No VB, LOF. Good FM. Growth US normal. 02/16/25-?-?-?-?-?-?-?-?-?-?-?-?- 37w 1d 169 lb 5 oz(+22 lb 5 oz) 110/67 Negative -?-?-?-?-?-?-?-?-?-?-?-?- Negative 140 34 Cephalic 3-?-?-?-?-?-?-?-?-?- ?-?-?- 60 -2 KW- no vb/lof/ctx. good adrianne bhakta. has dental appt on tues for infected tooth. GBS today. 02/22/25-?-?-?-?-?-?-?-?-?-?-?-?- 38w 0d 169 lb(+22 lb) 120/75 Negative -?-?-?-?-?-?-?-?-?-?-?-?- Negative 160 35 Cephalic 3.5-?-?-?-?-?-?-?-?- ?-?-?-?- 60 -2 SM- no vb lof good fm no regular ctx, low FH- [place] 1 cm ACOG First Trimester First Trimester: Desire for , Alcohol, Tobacco Cessation, Illicit/Recreational Drug/Substance Use, Intimate Partner Violence, Barriers to care, Unstable Housing, Communication Barriers, Environmental/Work Hazards, Anticipated Course of Care, Toxoplasmosis Precations, Use of Any medi cations, Sexual activity, Exercise, Dental Care, Sauna/Hot tub use, Seat Belt use, Childbirth classes/Hospital facilities, Travel, Indications for Ultrasound and Screening for Aneuploidy; Discussed Second Trimester Second Trimester: Signs and Symptoms of Labor, Selecting a care provider, Reproductive Life Planning & Contreception, Care Planning, Tobacco Cessation, Depression/Anxiety and Intimate Partner Violence Third Trimester Third Trimester: Pain Management Plans, Labor support person(s), Immediate Po stpartum Larc, Movement Monitoring and Infant Feeding No ; Discussed Trial of Labor after Counseling and Discussed Circumcision preference ROS Const Reports system reviewed and no additional complaints, except as documented Card Reports system reviewed and no additional complaints, except as documented Resp Reports system reviewed and no additional complaints, except as documented GI Reports system reviewed and no additional complaints, except as documented and Reports nausea Reports system reviewed and no additional complaints, except as documented Musc Reports system reviewed and no additional complaints, except as documented Exam Const General: cooperative, healthy appearing, comfortable and anxious [facility] Head: normal to inspection Nose: external nose normal Face and sinus: normal facial exam Neck Neck: normal visual inspection, full ROM and no lymphadenopathy Thyroid: thyroid normal Chest Chest palpation & inspection: normal inspection of the chest Resp Effort & Inspection: normal respiratory effort GI Inspection: normal to inspection Palpation: soft and other (gravid uterus) Other: infant vertex and appropriate size for gestational age Other: Cervical Exam: Extrem General: pedal edema Results POC Urinalysis 2 Dip (Clinic) Office Urine Glucose Negative Last Edit by Rossy Borja on 02/22/25 08:33 Office Urine Protein Negative Last Edit by Rossy Borja on 02/22/25 08:33 Coding Level of Care Code OB Routine Diagnoses Rubella non-immune status, antepartum O09.899; Z28.39 History of oligohydramnios Z87.59 Encounter for supervision of other normal in third trimester Z34.83 Normal : other normal Trimester: third trimester 38 weeks gestation of Z3A.38 Weeks of gestation: 38 weeks Oligohydramnios in third trimester O41.03X0 Encounter for induction of labor Z34.90 Assessment and Plan Assessment and Plan (1) Rubella non-immune status, antepartum: Status: Acute Comment: offer MMR PP (2) History of oligohydramnios: Status: Acute Comment: growth US at 36 weeks (3) Supervision of normal : Status: Acute Qualifiers: Normal : other normal Trimester: third trimester Qualified Code(s): Z34.83 - Encounter for supervision of other normal , third trimester Comment: PRR,, LISA 03/08/25, girl PC Gayle, Adán (4) : Status: Acute Qualifiers: Weeks of gestation: 38 weeks Qualified Code(s): Z3A.38 - 38 weeks gestation of Comment: gbs neg, declined NIPT & Carrier testing, nl anatomy (5) Oligohydramnios in third trimester: Status: Acute Comment: [place] 1 cm (6) Encounter for induction of labor: Status: Acute Orders: Orders Induction of labor for oligohydramnios plan Pitocin POC Urinalysis 2 Dip (Clinic) Today
[2025-02-22] MEDS: fentaNYL-bupivacaine (epidural) 100 ML BAG EPIDURAL (15:30)
[2025-02-22] MEDS: Lactated Ringers 1,000 ML 200 ML IV (15:54)
[2025-02-22] MEDS: Oxytocin 15 Units/NS 250ml 15 UNITS/250 ML IV.SOLN 167 UNITS IV (18:55)
--- NOTE | 2025-02-22 19:02 | EX.PCM.OBVAG ---
Assessment & Plan (1) Encounter for induction of labor: (2) Oligohydramnios in third trimester: COMMENT: frandy 1 cm (3) Rubella non-immune status, antepartum: COMMENT: offer MMR PP (4) History of oligohydramnios: COMMENT: growth US at 36 weeks (5) Supervision of normal : QUALIFIERS: Normal : other normal Trimester: third trimester Qualified Code(s): Z34.83 - Encounter for supervision of other normal , third trimester COMMENT: PRR,, LISA 03/08/25, girl PC Gayle, Adán (6) : QUALIFIERS: Weeks of gestation: 38 weeks Qualified Code(s): Z3A.38 - 38 weeks gestation of COMMENT: gbs neg, declined NIPT & Carrier testing, nl anatomy (7) Vaginal delivery: COMMENT: SM IOL [place] girl Rossy Maternal Data Information LISA Calculator Estimated Delivery Date Method Current WG Current Estimate 03/08/25 LMP (Certain) 38w 1d Other Estimates 03/08/25 Ultrasound #1 38w 1d Vaginal Delivery Maternal Presentation Maternal Presentation: see assessment and plan Vaginal Delivery Information Procedure Performed: Spontaneous Vaginal Delivery Surgeon/Practitioner: Ewelina Boone Pre-Procedure Diagnosis: see assessment and plan Post-Procedure Diagnosis: same Type of anesthesia: Epidural Findings Description of procedure: Patient began pushing and delivered the head in the ASHU presentation. The head was delivered atraumatically . The anterior and posterior shoulders delivered without complication followed by the rest of the infant and the infant was placed on the maternal abdomen. Delayed cord clamping was employed for approximately 60 seconds. Cord was clamped and cut and gentle traction was applied to the cord and the placenta delivered spontaneously immediately following it was noted to be missing a cotyledon therefore a curettage was performed at the bedside without complication, manual exploration with no further retained products found, this was all done after the vagina was Betadine prepped. Ancef will be given.. The perineum and vagina were inspected and was noted to have a first-degree laceration that was repaired in the usual fashion with 3-0 vicryl rapide . EBL was 300. Patient and tolerated delivery well. Presentation: Vertex Placental Delivery Description: Spontaneous Specimen collected: Yes Description of specimen(s) removed: placenta Pension Fund Manager director of retail marketing: No Post Vaginal Deli Medications given after delivery: Other (pitocin) Complication Complications: No Multi Select Codes Urinary/Genital Urinary/Genital CPT Codes: 05819 Curettage, and 92807 Vaginal Delivery [facility]
[2025-02-22] MEDS: Cefazolin 2 GM in 0.9% Normal Saline (100mL Bag) 100 ML IV (19:47)
[2025-02-23] VITALS: BP 103/67; PULSE 85; RESP 16; TEMP 36.2; O2SAT 100
[2025-02-23] MEDS: Benzocaine/Lanolin/Aloe Vera 85 GM Spray 1 SPRAY TOPICAL (00:23)
--- NOTE | 2025-02-23 00:39 | DCINST_ITS ---
Discharge Instructions DC O2, CPAP, BIPAP needs Home O2 Discharge instructions: No Dressing / Incision Discharge Activity: Return to Normal Activity, May Not Drive (while taking narcotic pain medications.) and May Shower May resume sexual activity in: 4-6 weeks Dressing / Incision Call your doctor if your incision/area has: Continuous Slow Oozing, Sudden Increased Bleeding, Increased Pain/ Swelling, Increased Redness and Foul Smelling Discharge Follow Up Care Please Follow Up With: Ewelina Boone MD When: Call [phone] to make an appointment with your doctor in 6 weeks. If you had elevated blood pressure or 4th degree laceration, you will need to be seen in 2 weeks. Test Results: Test results from this visit will be discussed in further detail at your follow- up appointment, if applicable. Discharge Plan Admission Admit Date/Time: 02/22/25 09:12 Attending Provider: Ewelina Boone Primary Care Provider: Jeferson Millan Discharge Orders/Prescriptions Prescriptions: No Action PNV-DHA 27 mg iron-1 mg -300 mg capsule 1 cap PO DAILY pyridoxine (vitamin B6) 100 mg tablet 100 mg PO DAILY Sleep Aid (doxylamine) 25 mg tablet 25 mg PO QHS PRN (Reason: nausea) Referrals / Follow Up: Jeferson Millan MD [Primary Care Provider] -
[2025-02-23 05:13] VITALS: BP 102/79; PULSE 77; RESP 14; TEMP 36.2; O2SAT 98
[2025-02-23 09:10] VITALS: BP 111/67; PULSE 78; RESP 16; TEMP 36.2; O2SAT 98
[2025-02-23 12:30] VITALS: BP 114/68; PULSE 86; RESP 16; TEMP 36.9; O2SAT 99
--- NOTE | 2025-02-23 13:21 | PCM.PN.OB ---
Subjective Subjective Patient doing well without complaints. Tolerating PO. Ambulating and voiding without difficulty. feeding well. Denies chest pain, shortness of breath, calf pain/swelling, fevers, chills, lightheadedness. Objective Data Objective Data Vital Signs: Vital Signs Temp Pulse Resp BP Pulse Ox O2 Del Method 97.1 F L 78 16 111/67 98 Room Air 02/23/25 09:10 02/23/25 09:10 02/23/25 09:10 02/23/25 09:10 02/23/25 09:10 02/23/25 09:10 Oxygen Delivery Method Room Air Weight: 169 lb Body Mass Index (BMI) 26.4 Intake & Output: Intake and Output for Last 24 Hours 02/21/25 02/22/25 02/23/25 23:59 23:59 23:59 Intake Total 3916.02 / 3916.02 Output Total 900 / 900 Balance 3016.02 / 3016.02 Lab / Micro Data 02/22/25 10:15 ROS Constitutional Constitutional: Reports systems reviewed and no addt'l complaints, except as documented Cardiovascular Cardiovascular: Reports systems reviewed and no addt'l complaints, except as documented Respiratory/Chest Respiratory/Chest: Reports systems reviewed and no addt'l complaints, except as documented Gastrointestinal Gastrointestinal: Reports systems reviewed and no addt'l complaints, except as documented Physical Exam Const alert, oriented x3 and no apparent distress HEENT Head and Scalp: atraumatic Resp normal respiratory effort GI soft to palpation and non-tender Bimanual Exam - Vag & Uterus: uterus non-tender Uterus Palpation: uterus fundus firm (below Umbilicus) Assessment & Plan (1) Vaginal delivery: COMMENT: SM IOL [place]lig[place] girl Rossy PLAN: Plan s/p PPD # 1 1. routine post delivery care 2. breast feeding- support given 3. rh positive 4. rubella immune
[2025-02-23 17:06] VITALS: BP 103/69; PULSE 73; RESP 16; TEMP 36.2; O2SAT 98
--- NOTE | 2025-02-28 15:35 | NURSING ---
Here for visit and follow up phone call questions answered. Patient denies any discomfort and that her bleeding is minimal. Denies any headaches, visual disturbances, flu like symptoms or baby blues. States that the baby has been nursing well and having good output. See note for assessment
== END 2025-02-23 18:25 | disposition home or self-care (01) | DRG 807 ==
PROVIDERS: Admitting Provider Obstetrics & Gynecology; PCP Family Medicine; Referring Provider Obstetrics & Gynecology; Visit Provider Obstetrics & Gynecology
DX: O41.03X0 Oligohydramnios, third trimester, not applicable or unspecified (principal); Z37.0 Single live birth; O70.0 First degree perineal laceration during delivery; Z3A.38 38 weeks gestation of pregnancy; Z28.39 Other underimmunization status; Z87.59 Personal history of other complications of pregnancy, childbirth and the puerperium
CPT/HCPCS: 59025; 59050; 85025; 86780; 86850; 86900; 86901; 99221; A4216; G0378

== ENCOUNTER 2025-03-30 11:46 | Outpatient (CLI) | payer OTHER, SELFPAY ==
--- NOTE | 2025-03-31 13:07 | NURSING ---
IBCLC called to check on pt. after being seen by 03/30 for nipple pain and possible thrush. Pt. reports her and infant are now being treated by PCP. Reviewed precautions to prevent re-infection, pt. denies further questions at this time. Encouragement and support given.
== END 2025-03-30 12:25 | disposition home or self-care (01) ==
LOC: WPOUT 11:48 → WP 11:48
PROVIDERS: PCP Family Medicine; Referring Provider Obstetrics & Gynecology; Visit Provider Obstetrics & Gynecology
DX: N64.4 Mastodynia (principal)
CPT/HCPCS: 96158